=== PATIENT | female | born 1960 | race African-American/Black ===

== ENCOUNTER → 2019-06-15 | Outpatient (CLI) | payer OTHER ==
--- NOTE | 2019-06-15 17:20 | RAD ---
EXAM: Ultrasound-guided left axillary lymph node biopsy. HISTORY: Left axillary lymphadenopathy. Biopsy is requested. FINDINGS: The procedure along with its risks and benefits were explained to the patient. She agreed to proceed. A timeout procedure was performed. Sonography of the left axilla again demonstrates lymph nodes with prominent cortices. The largest node was selected for biopsy. The overlying skin was sterilely prepped and infiltrated with 1% lidocaine for local anesthesia. Under ultrasound guidance, 4 18-gauge core needle specimens were obtained through the cortex of the target lymph node. 3 were submitted in formalin and one for flow cytometry. There were no immediate complications. IMPRESSION: 1. Successful ultrasound-guided biopsy of a left axillary lymph node. Electronically signed by: Ish Royal MD (06/15/2019 5:17 PM) [facility]
--- NOTE | 2019-06-23 10:07 | PATHOLOGY ---
[facility] Accession Number: [id number] . 01 Material submitted: . lymph node - LEFT AXILLARY LYMPH NODE BIOPSY. Modifiers: left, axillary tail . 01 Clinical history: . Left axilla abnormal node. . 02 Diagnosis: Lymph node, left axillary lymph node needle biopsies: - Reactive lymphoid hyperplasia. (ANDREW:caity; 06/22/2019) [facility] 06/22/2019 1049 Local . 02 Comment: Sections of the left axillary lymph node biopsy reveal multiple segments of lymph node. The lymph node architecture appears preserved. There are scattered lymphoid follicles. The lymphoid follicles possess germinal centers which contain a few tingible body macrophages. The germinal centers are surrounded by a mantle of small lymphocytes. The interfollicular areas are composed predominantly of small lymphocytes with scattered admixed plasma cells and occasional pigmented macrophages. The art sinuses are focally preserved. There is no atypical large cell lymphoid proliferation. There are no Theodore-Salma cells. There are no granulomas. There is no evidence of metastatic carcinoma. . A portion of the specimen is submitted for flow cytometric analysis and has a viability of 99.3%. Lymphocytes comprise 97.6% of total cells. T-cells comprise 37% of lymphoid cells and show a CD4/CD8 ratio of 2.6. NK-cells comprise 1% of lymphoid cells. Mature B-cells comprise 61% of lymphoid cells and are polyclonal with a kappa:lambda ratio of 1.2. Plasma cells comprise 0.7% of total cells and show unremarkable surface marker expression. . To confirm flow cytometric findings and characterize the target cells in a tissue architectural context, a panel of immunoperoxidase stains is performed on block A1 and yields the following results: . CD20: Lymphoid follicles and predominant population of interfollicular small lymphocytes positive. CD3: Subpopulation of interfollicular small lymphocytes positive. CD5: Subpopulation of interfollicular small lymphocytes positive similar to CD3. CD10: Germinal center lymphocytes positive. CD23: Dendritic meshwork within lymphoid follicles positive and subpopulation of interfollicular small lymphocytes positive. BCL-2: Interfollicular small lymphocytes positive and germinal center lymphocytes negative. BCL-6: Follicular germinal center lymphocytes positive. Cyclin D1: Lack of diffuse positivity of small lymphocytes. MUM-1: Scattered plasma cells and activated lymphocytes positive. . The morphologic and immunophenotypic findings are supportive of the diagnosis of reactive lymphoid hyperplasia. The case is also examined by Dr. Yung, who concurs with the diagnosis. (JPM:shade matcher; 06/22/2019) . Special stains performed on A1: Immunoperoxidase stains for CD20, CD3, CD5, CD10, CD23, BCL-2, BCL-6, cyclin D1, MUM-1. . 02 Electronically signed: . Nickolas Gomez MD, Pathologist NPI- [id number] . 01 Gross description: . Received in formalin labeled "Saulter, Ceci, left axilla node" are multiple beach-brown cylindrical soft tissue cores measuring in aggregate 1.2 x 0.3 x 0.1 cm. The specimen is submitted in cassettes A1-A3. The specimen is removed from the patient at 1409 and placed in formalin at 1416 on June 15, 2019. The specimen is removed from formalin at 1850 on June 17, 2019. ([facility] [place] [facility]; 06/17/2019) [facility] 06/17/2019 1116 Local . 02 Pathologist provided ICD-10: R59.9 . 02 CPT . 652944, C13227, [id number] Specimen Comment: A courtesy copy of this report has been sent to [phone], [phone] Specimen Comment: [phone] Specimen Comment: Report sent to / DR VALDEZ Performed at: 01 [facility] [address], [place] [id number] MD Linden Daugherty MD Phone: [phone] Performed at: 02 [facility] [address] [place], [place] [id number] MD Nickolas Gomez MD Phone: [phone]
== END | disposition home or self-care (01) ==
LOC: US 12:30 → EDUNIT# 12:30
PROVIDERS: ATTEND Nurse Practitioner Family
DX: R59.1 Generalized enlarged lymph nodes (principal)
CPT/HCPCS: 19081; 19083; 38505; 76942; 88184; 88185